=== PATIENT | male | born 1960 | race Caucasian/White ===

== ENCOUNTER → 2018-03-25 | Outpatient (CLI) | payer OTHER ==
[2018-03-25 08:07] LABS: Basophils % (A) 0 %; Eosinophils # (A) 0.1 k/uL (0-0.7); Eosinophils % (A) 2 %; HGB 14.6 gm/dL (13.0-17.5); Lymphocytes # (A) 1.3 k/uL (1.0-4.8); Lymphocytes % (A) 21 %; MCH 28.7 pg (25.0-35.0); MCHC 34.1 g/dL (31.0-37.0); MCV 84.2 fL (80.0-100.0); Mean Platelet Volume 6.8; Monocytes # (A) 0.3 k/uL (0-1.0); Monocytes % (A) 5 %; Neutrophils # (A) 4.3 k/uL (1.3-7.7); Neutrophils % (A) 69 %; Platelet Count 180 k/uL (150-450); RBC 5.11 m/uL (4.30-5.90); RDW 12.7 % (11.5-15.5); WBC 6.3 k/uL (3.8-10.6)
[2018-03-25 08:22] LABS: Anion Gap 8 mmol/L; Blood Urea Nitrogen 27 mg/dL (9-20); Calcium 9.8 mg/dL (8.4-10.2); Carbon Dioxide 30 mmol/L (22-30); Chloride 105 mmol/L (98-107); Glucose 117 mg/dL (74-99); Potassium 4.4 mmol/L (3.5-5.1); Sodium 143 mmol/L (137-145)
== END ==
LOC: LABPAT 07:15
PROVIDERS: ATTEND Urology
DX: Z01.818 Encounter for other preprocedural examination (principal); Z01.812 Encounter for preprocedural laboratory examination; C67.5 Malignant neoplasm of bladder neck
CPT/HCPCS: 36415; 80048; 85025; 93005

== ENCOUNTER 2018-04-01 08:38 | Day surgery (SDC) | payer OTHER ==
[2018-03-23 12:52] VITALS: BMI 29.3
--- NOTE | 2018-03-30 21:28 | P.GSHP ---
History of Present Illness H&P Date: 03/30/18 Chief Complaint: Bladder tumor The patient is a 57-yea who was originally diagnosed with bladder cancer around 1994. A low-grade stage Ta transitional cell carcinoma was resected in 12/2010. Biopsies in 08/2012 showed a papillary lesion of low malignant potential. The patient was treated with intravesical BCG later that year. The patient was first evaluated by me in 2016. Follow-up cystoscopy on 01/16/2018 identified a 4 -5 mm raised lesion at the bladder neck at 11:00 suggestive of recurrent bladder cancer. He has had no gross hematuria. Transurethral resection of the tumor is planned. - Constitutional Constitutional: Denies chronic pain, Denies weight gain, Denies weight loss - Cardiovascular Cardiovascular: Denies chest pain, Denies edema, Denies palpitations, Denies shortness of breath - Respiratory Respiratory: Denies cough, Denies wheezing - Gastrointestinal Gastrointestinal: Denies abdominal pain - Genitourinary (Male) Genitourinary: Denies dysuria, Denies hematuria Past Medical History Past Medical History: Cancer, Hyperlipidemia, Hypertension Additional Past Medical History / Comment(s): "Clip in head due to brain aneurysym 25 yrs ago, no problems since then." Current bladder cancer. Hx Bladder cancer X2, last 5 yrs ago, had chemo then. History of Any Multi-Drug Resistant Organisms: None Reported Past Surgical History: Tonsillectomy Additional Past Surgical History / Comment(s): TUR bladder tumors, Surgical treatment of brain aneurysm Past Anesthesia/Blood Transfusion Reactions: No Reported Reaction Past Psychological History: No Psychological Hx Reported Smoking Status: Former smoker Past Alcohol Use History: None Reported Past Drug Use History: None Reported - Past Family History Mother Family Medical History: No Reported History Medications and Allergies Home Medications Medication Instructions Recorded Confirmed Type Atorvastatin [Lipitor] 40 mg PO HS 03/23/18 03/23/18 History Diazepam [Valium] 20 mg PO HS PRN 03/23/18 03/23/18 History Valsartan-Hctz(Unknown Dose) 1 tab PO QAM 03/23/18 03/23/18 History Allergies Allergy/AdvReac Type Severity Reaction Status Date / Time No Known Allergies Allergy Verified 03/23/18 12:52 Surgical - Exam - General well developed, well nourished, no distress - ENT no hearing loss - Neck no masses, no lymphadectomy - Respiratory normal respiratory effort, clear to auscultation - Cardiovascular Rhythm: regular Abnormal Heart Sounds: no systolic murmur, no diastolic murmur - Abdomen Abdomen: soft, no organomegaly Hernia: none - Genitourinary normal penis with no external lesions, testicles non-tender Assessment and Plan Assessment: The patient will undergo cystoscopy with transurethral resection of the tumor located at the bladder neck under general anesthesia. He is aware of the operative risks which include anesthesia, bleeding and infection. (1) Bladder neoplasm of uncertain malignant potential Status: Acute Code(s): D41.4 - NEOPLASM OF UNCERTAIN BEHAVIOR OF BLADDER SNOMED Code(s): 02200152
[~2018-04-01 08:38] MED LIST: DEXAMETHASONE SOD PHOSPHATE 10 MG/ML 1 ML VIAL IV ONE; HYDROmorphone 1 MG/ML 1 ML SYRINGE IVP PRN; LACTATED RINGERS 1,000 ML IV SCH; MIDAZOLAM 2 MG/2 ML VIAL IV PRN; ONDANSETRON 4 MG/2 ML VIAL IVP ONE; SCOPOLAMINE 1.5MG/72HR PATCH TRANSDERM ONE; ceFAZolin IN SWFI 2 GM/20 ML SYRINGE IVP ONE
[2018-04-01] MEDS ORDERED: ePHEDrine SULFATE/0.9% NACL/PF 50 MG/5 ML SYRINGE IV ONE (09:38)
[2018-04-01] MEDS ORDERED: PROPOFOL 10 MG/ML 20 ML VIAL IV ONE (09:38)
[2018-04-01] MEDS ORDERED: fentaNYL (PF) 50 MCG/ML 2 ML AMP ONE (09:38)
[2018-04-01] MEDS ORDERED: GLYCOPYRROLATE 0.2 MG/ML 2 ML VIAL ONE (09:38)
[2018-04-01] MEDS ORDERED: LIDOCAINE 1% INJ 10MG/ML (20 ML MDV) ONE (09:38)
[2018-04-01] MEDS ORDERED: MIDAZOLAM 2 MG/2 ML VIAL ONE (09:38)
[2018-04-01 10:28] VITALS: RESP 18; TEMP 97.1
--- NOTE | 2018-04-01 10:28 | P.OP ---
Date of Procedure: 04/01/18 Preoperative Diagnosis: Bladder cancer Postoperative Diagnosis: Bladder cancer Procedure(s) Performed: Transurethral rescection of bladder tumor Anesthesia: SHARMAINE Surgeon: Davy Jiménez Estimated Blood Loss (ml): 0 Pathology: none sent (tumor bladder neck) Condition: stable Disposition: PACU Indications for Procedure: The patient is a 57-year-old male with a history of bladder cancer. He was identified tried to have a 5 x 7 mm growth just inside the bladder neck at 11: 00 via cystoscopy performed earlier this month. Transurethral resection of the tumors planned. Description of Procedure: The patient was taken to the operating suite where adequate general anesthesia via orotracheal intubation was instituted. He was placed in the dorsal lithotomy position with his legs suspended from padded Pj stirrups. Pneumatic compression stockings were applied to his lower legs. The urethral meatus was dilated to 26-Swedish using a Edin sound. The 25-Swedish resectoscope sheath with visual obturator and 30 lens was passed through the urethra under direct vision. The anterior urethra was unremarkable. Prostatic urethra showed evidence of moderate lateral lobe enlargement. No urothelial abnormalities were noted. Just inside the bladder neck at 1 to 2:00 was a papillary growths measuring approximately 5 x 7 mm in diameter. The bladder was examined. Both ureteral orifices were of normal location and configuration and effluxed clear urine. The bladder was otherwise free of tumor foreign body and diverticulum. Using the Gale resectoscope and loop cutting electrode the tumor was resected down to the underlying muscle. The tumor appeared superficial. The base of the tumor was cauterized and at the completion the procedure hemostasis appeared excellent. The tissues were resected was retrieved through the resectoscope sheath. The resectoscope sheath was removed. A 16-Swedish Gan catheter was inserted and left to gravity drainage. Patient tolerated procedure well and left the operating room awake and in satisfactory condition. There was no blood loss. A sheets catheter will be removed in 2 days. He will be seen back in follow-up in 1 week.
[2018-04-01 11:47] VITALS: BP 158/80; PULSE 74
== END 2018-04-01 11:46 | disposition home or self-care (01) ==
LOC: OR 08:38
PROVIDERS: ATTEND Urology
DX: E78.5 Hyperlipidemia, unspecified (principal); I10 Essential (primary) hypertension; Z85.51 Personal history of malignant neoplasm of bladder; Z92.21 Personal history of antineoplastic chemotherapy; Z87.891 Personal history of nicotine dependence; Z79.899 Other long term (current) drug therapy; C67.9 Malignant neoplasm of bladder, unspecified
CPT/HCPCS: 52500; 84132; 88307; J2250; J1100; J2405; J2001; J3010; J2704; J0690

== ENCOUNTER 2021-04-09 13:18 | Emergency (ER) | payer OTHER ==
[2021-04-09] MEDS ORDERED: EPINEPHrine 1 MG/ML (MDV) 30 ML VIAL ONE (13:30)
[2021-04-09] MEDS ORDERED: SODIUM CHLORIDE 0.9% 250 ML BAG ONE (13:30)
[2021-04-09] MEDS ORDERED: SODIUM BICARB 8.4% 50 ML SYR (1 MEQ/ML) ONE (13:30)
[2021-04-09] MEDS ORDERED: EPINEPHrine 10 ML SYRINGE (0.1 MG/ML) ONE (13:30)
[2021-04-09] MEDS ORDERED: ROCURONIUM 10 MG/ML (5 ML VIAL) IV ONE (13:43)
[2021-04-09 13:44] VITALS: PULSE 91
[2021-04-09 13:48] LABS: Glucose,Whole Blood 156 mg/dL (75-99)
--- NOTE | 2021-04-09 13:58 | ED ---
General Adult HPI - General Chief complaint: Cardiac Arrest/CPR Stated complaint: Cardiac arrest Time Seen by Provider: 04/09/21 13:49 Source: EMS Mode of arrival: EMS Limitations: altered mental status, physical limitation - History of Present Illness Initial comments: Dictation was produced using Mosso dictation software. please excuse any gramm atical, word or spelling errors. Chief Complaint: 60-year-old male presents to the ER for cardiac arrest History of Present Illness: Is 60-year-old male he presented to the police depar tment office at the [employer] building when at 1246 return purple and collapse. Patient's episode of collapse was witnessed by a bystander. EMS was called and CPR was started at approximately 12:50 PM. History of present illness obtained by EMS. They suspect that patient was at the unemployment office to file for unemployment. EMS reports that patient was connected to the monitor had a variety of ventricular fibrillation, pulseless electrical activity. They were able to get return of spontaneous circulation on some occasions. Prior to hospital arrival patient had received 2 of epinephrine, one injection of amiodarone. It CPR maintained by [place] device. EMS did not have any information on patient's medical history or family information. Unable to obtain ROS secondary to medical status PHYSICAL EXAM: General Impression: Obtunded, cyanotic HEENT: Normocephalic atraumatic, extra-ocular movements intact, pupils equal and reactive to light bilaterally, dry mucous membranes Cardiovascular: Pulseless Chest: Bilateral breath sounds with BVM Abdomen: abdomen soft, non-distended, no organomegaly Musculoskeletal: no peripheral edema ED course: 60-year-old male presents to the emergency department after cardiac arrest. Patient arrested at approximately 1246 according to EMS. CPR started within 5 minutes of collapse. Patient had a variety of return of spontaneous circulation, V. fib and PA prior to arrival. EMS provided patient with multiple defibrillations, amiodarone and epinephrine. Patient was pulseless on arrival. CPR was continued. Patient had multiple episodes of CPR. There were 3 brief moments of return of spontaneous circulation. He received multiple rounds of calcium, sodium bicarbonate, epinephrine. Point of care bedside ultrasound was performed showing [id number] cardiac motion. He was pulseless. At this point given total down time and refractory dysrhythmia time of was pronounced at 1:46 PM. Chart review was performed. It appears that patient has history of bladder cancer. Mother, it made about any other comorbidities. Presented in March 2018 patient had bladder cancer procedure where the tumor was resected transurethrally. There is an H&P written by urology around that time that shows that patient past medical history of dyslipidemia and hypertension. He also has history of brain aneurysm clipped from several years ago. Patient is a mild there was a next of kin with the name of Vane June. Phone number listed is a [phone]. Multiple times were made to call that number with busy signal. Patient will be dispositioned to the [facility] where marked staff and medical artist will continue to try to reach family. - Related Data Home Medications Medication Instructions Recorded Confirmed Atorvastatin [Lipitor] 40 mg PO HS 03/23/18 03/23/18 Diazepam [Valium] 20 mg PO HS PRN 03/23/18 04/01/18 Valsartan-Hctz(Unknown Dose) 1 tab PO QAM 03/23/18 04/01/18 Allergies Allergy/AdvReac Type Severity Reaction Status Date / Time No Known Allergies Allergy Verified 04/09/21 13:59 Review of Systems ROS Statement: Those systems with pertinent positive or pertinent negative responses have been documented in the HPI. ROS Other: All systems not noted in ROS Statement are negative. Past Medical History Past Medical History: Unable to Obtain History of Any Multi-Drug Resistant Organisms: None Reported Past Surgical History: Unable to Obtain Past Psychological History: No Psychological Hx Reported Smoking Status: Unknown if ever smoked Past Alcohol Use History: None Reported Past Drug Use History: None Reported - Past Family History Mother Family Medical History: No Reported History General Exam Limitations: altered mental status, physical limitation Course Vital Signs 04/09/21 04/09/21 13:20 13:43 Pulse Rate 161 H 91 Blood Pressure 120/59 71/49 Medical Decision Making - Lab Data Lab Results 04/09/21 Range/Units 13:27 POC Glucose (mg/dL) 156 H (75-99) mg/dL POC [facility] Practice Manager ID Kim Vieira Disposition Clinical Impression: Cardiac arrest, Sudden cardiac Disposition: Condition: Undetermined Is patient prescribed a controlled substance at d/c from ED?: No Referrals: None,Stated [Primary Care Provider] - 1-2 days Preliminary Cause of : cardiac arrest
[2021-04-09 14:43] VITALS: BP 71/49
== END 2021-04-09 15:19 | disposition expired ==
LOC: EDBD → MERGE 13:18 → EC 13:18
DX: I46.9 Cardiac arrest, cause unspecified (principal)
CPT/HCPCS: 36415; 92950; 99285